=== PATIENT | female | born 1945 | race Caucasian/White ===

== ENCOUNTER 2019-10-12 15:53 | Observation (INO) ==
[2019-10-12] MEDS ORDERED: Mag Hydrox/Al Hydrox/Simeth 30 ML UDC PO PRN (18:04)
[2019-10-12] MEDS ORDERED: Naloxone 0.4 MG/ML INJ IVP PRN (18:04)
[2019-10-12] MEDS ORDERED: MOM Conc 10 ML UD.LIQ PO PRN (18:04)
[2019-10-12] MEDS ORDERED: Acetaminophen 325 MG TABLET PO PRN (18:04)
[2019-10-12] MEDS ORDERED: Ondansetron 4 MG/2 ML VIAL IVP PRN (18:04)
[2019-10-12] MEDS ORDERED: MENTHOL TP PRN (18:12)
[2019-10-12] MEDS ORDERED: *HR* LORazepam 1 MG TABLET PO PRN (18:12)
[2019-10-12] MEDS: 0.9 % Sodium Chloride 1,000 ML IVC SCH (18:34)
[2019-10-12] MEDS ORDERED: 0.9 % Sodium Chloride 1,000 ML IV ONE (19:20)
[2019-10-12] MEDS ORDERED: Ketorolac 30 MG/ML VIAL IM ONE (19:29)
[2019-10-12] MEDS ORDERED: *HR* HYDROcodone/Acet 7.5/325 mg TABLET PO PRN (19:30)
[2019-10-12] MEDS ORDERED: Famotidine 20 MG TABLET PO SCH (21:00)
[2019-10-12] MEDS: Gabapentin 400 MG CAPSULE PO SCH (21:03)
[2019-10-13] MEDS: 0.9 % Sodium Chloride 1,000 ML IVC SCH (05:50)
[2019-10-13 07:02] LABS: BUN/Creatinine Ratio 55 (6-26); Blood Urea Nitrogen 36 mg/dL (8-23); Calcium 7.4 mg/dL (8.6-10.3); Carbon Dioxide 24 mEq/L (23-29); Chloride 105 mEq/L (98-107); Glucose 100 mg/dL (70-105); Osmolality,Calculated 284 (280-300); Potassium 4.2 mEq/L (3.5-5.1); Sodium 133 mEq/L (136-145); eGFR For African Americans > 60 (> 60); eGFR For Non-African Americans > 60 (> 60)
[2019-10-13 07:21] LABS: Eosinophils % 0.4 %; Hematocrit 15.6 % (35.3-44.9); Immature Granulocytes % 0.5 % (0-4); Lymphocytes # 1.6 K/mcL (0.6-4.6); Lymphocytes % 14.4 %; Mean Corpuscular HGB Conc 33.3 g/dL (31.6-35.5); Mean Corpuscular Hemoglobin 31.5 pg (28.0-33.3); Mean Corpuscular Volume 94.5 fL (83.0-100.0); Mean Platelet Volume 9.8 fL (9.4-12.4); Monocytes # 0.8 K/mcL (0.0-1.3); Monocytes % 7.5 %; Neutrophils # 8.6 K/mcL (1.6-8.9); Platelet Count 132 K/mcL (140-400); Red Blood Count 1.65 M/mcL (3.82-4.97); Red Cell Distribution Width 13.1 % (11.5-14.5); Segmented Neutrophils % 77.2 %; White Blood Count 11.1 K/mcL (4.3-11.1)
[2019-10-13 07:27] LABS: Hemoglobin 5.2 g/dL (11.5-15.4)
[2019-10-13] MEDS ORDERED: 0.9 % Sodium Chloride 1,000 ML IVC ONE (07:36)
[2019-10-13] MEDS ORDERED: Pantoprazole 40 MG VIAL IVP SCH (07:48)
[2019-10-13] MEDS ORDERED: Aspirin 81 MG TAB.CHEW PO SCH (09:00)
[2019-10-13 09:12] LABS: Hematocrit 14.9 % (35.3-44.9); Hemoglobin 4.9 g/dL (11.5-15.4)
[2019-10-13 09:24] LABS: Albumin 2.6 g/dL (3.5-5.7); Albumin/Globulin Ratio 1.5 (1.1-2.2); Bilirubin,Direct 0.1 mg/dL (0.0-0.2); Bilirubin,Indirect 0.2 mg/dL (0.0-1.0); Bilirubin,Total 0.3 mg/dL (0.3-1.0); Globulin 1.7 g/dL (2.4-3.5); Total Protein 4.3 g/dL (6.4-8.9)
[2019-10-13 09:41] VITALS: BP 87/53
[2019-10-13 09:42] LABS: % Iron Saturation 40 % (15-50); Iron 104 mcg/dL (50-170); Transferrin 186 mg/dL (203-362)
[2019-10-13] MEDS: Gabapentin 400 MG CAPSULE PO SCH (10:06)
[2019-10-13 10:12] LABS: Folate > 22.3 ng/mL (3.0-16.0); Vitamin B12 816 pg/mL (250-1100)
== END 2019-10-13 10:55 | disposition short-term general hospital (02) ==
LOC: EMEROOPIK 15:53 → INPPIK 15:53
PROVIDERS: ADMIT Family Medicine; ATTEND Family Medicine